=== PATIENT | female | born 1940 | race Caucasian/White ===

== ENCOUNTER 2019-04-06 11:40 | Inpatient (IN) | payer MEDICARE, OTHER ==
[~2019-04-06] VITALS: Ht 167.6 cm; Wt 83.0 kg
[~2019-04-06 11:40] MED LIST: ACET1TAB40 PO; ALBU18HF INHALATION; AMIO200T4 PO; AMLO5TAB4 PO; ASPI81TA52 PO; ASPIRIN; ATEN-51 PO; BACL10TA PO; BUPR150T6 PO; CEPH500C PO; CLOP75TA27 PO; CYCL1DRO BOTH EYES; DIGO250T16 PO; DIOVAN; DULO30CA48 PO; ENALIPRIL; ESOM40CA PO; EZET10TA19 PO; FURO-110 PO; GABA100C14 PO; HYDR-3671 PO; ISOSORBIDE; LIDO700A29 TP; MELO15TA30 PO; MEMA10TA PO; METOPROLOL; MIRA25TA PO; MONT10TA24 PO; OMEP40CA38 PO; PRAM1TAB PO; RSV10T PO; TEMA15CA6 PO; TRAM50TA PO; VALS160T20 PO
[2019-04-06] MEDS ORDERED: CEFEPIME 2GM/50 ML (PMX) 50 ML IVPB STA (11:55)
[2019-04-06] MEDS ORDERED: KETOROLAC 15 MG INJ IV STA (11:55)
[2019-04-06] MEDS ORDERED: ACETAMINOPHEN 325 MG TAB PO STA (11:55)
[2019-04-06] MEDS ORDERED: SODIUM CHLORIDE 0.9% 1L BAG IV* STA (11:55)
[2019-04-06] MEDS ORDERED: VANCOMYCIN 1 GM (PMX) 250 ML IVPB ONE (12:00)
[2019-04-06] MEDS ORDERED: DILTIAZEM-D5W 125MG/125ML DRIP 125 ML IV STA (12:57)
[2019-04-06] MEDS ORDERED: MAGNESIUM SULFATE 2 GM/50 ML 50 ML IVPB STA (12:57)
[2019-04-06] MEDS ORDERED: DIPHENHYDRAMINE 50 MG INJ IV ONE (13:00)
[2019-04-06] MEDS ORDERED: DILTIAZEM 25 MG INJ IV ONE (13:00)
[2019-04-06] MEDS ORDERED: DEXAMETHASONE 10 MG/ML 1 ML INJ IV ONE (13:00)
[2019-04-06] MEDS ORDERED: ACETAMINOPHEN 325 MG TAB PO PRN ×2 (14:30→17:00)
[2019-04-06] MEDS ORDERED: ONDANSETRON 4 MG INJ IV PRN ×2 (14:30→17:00)
[2019-04-06 16:46] VITALS: BP 114/60; PULSE 91; RESP 16
[2019-04-06 16:47] VITALS: Ht 167.6 cm; Wt 83.0 kg
[2019-04-06] MEDS ORDERED: morphine 2 MG INJ IV PRN (17:00)
[2019-04-06] MEDS ORDERED: traMADol 50 MG TAB PO PRN (17:00)
[2019-04-06] MEDS ORDERED: VANCOMYCIN IV PER PHARMACY XX SCH (17:00)
[2019-04-06] MEDS ORDERED: hydrALAzine 20 MG INJ IV PRN (17:00)
[2019-04-06] MEDS ORDERED: LORAZEPAM 2 MG INJ IV PRN (17:00)
[2019-04-06] MEDS ORDERED: MAGNESIUM HYDROXIDE 30ML CUP PO PRN (17:00)
[2019-04-06] MEDS ORDERED: NACL 0.9% 3 ML SYG IV SCH (17:00)
[2019-04-06] MEDS ORDERED: NITROGLYCERIN (SL) 0.4 MG TAB SL PRN (17:00)
[2019-04-06] MEDS ORDERED: HYDROCODONE/APAP (5/325) TAB PO PRN (17:00)
[2019-04-06] MEDS ORDERED: DOCUSATE SODIUM 100 MG CAP PO PRN (17:00)
[2019-04-06] MEDS ORDERED: ALBUTEROL/IPRATROPIUM (NEB) 3 ML AMP HHN PRN (17:00)
[2019-04-06] MEDS ORDERED: NON-FORMULARY/PATIENT OWN MED (Temazepam* (Restoril*) 15 MG) PO PRN (17:00)
[2019-04-06] MEDS ORDERED: DILTIAZEM-D5W 125MG/125ML DRIP 125 ML IV SCH (17:00)
[2019-04-06] MEDS: SOD CHLORIDE 0.45% 1,000 ML IV SCH (17:57)
[2019-04-06] MEDS ORDERED: ZOLPIDEM 5 MG TAB PO PRN (18:30)
[2019-04-06] MEDS: PIPER-TAZO 3.375 GM IV (PMX) 100 ML IVPB SCH (18:31)
[2019-04-06 20:00] VITALS: BP 111/56; PULSE 88; RESP 17
[2019-04-06] MEDS: MEMANTINE 10 MG TAB PO SCH (21:00)
[2019-04-06] MEDS ORDERED: PRAMIPEXOLE 1 MG TAB PO SCH (21:00)
[2019-04-06] MEDS ORDERED: MONTELUKAST 10 MG TAB PO SCH (21:00)
[2019-04-06] MEDS ORDERED: EZETIMIBE 10 MG TAB PO SCH (21:00)
[2019-04-06] MEDS: ATENOLOL 25 MG TAB PO SCH (21:00)
[2019-04-06] MEDS ORDERED: NON-FORMULARY/PATIENT OWN MED (Rosuvastatin Calcium* (Crestor*) 10 MG) PO SCH (21:00)
[2019-04-06] MEDS: GABAPENTIN 100 MG CAP PO SCH (21:00)
[2019-04-06] MEDS ORDERED: ATORVASTATIN 40 MG TAB PO SCH (21:00)
[2019-04-06] MEDS: CYCLOSPORINE 0.05% OPH DROPERETTE BOTH EYES SCH (21:19)
[2019-04-06] MEDS: APIXABAN 5 MG TABLET PO SCH (21:20)
[2019-04-06] MEDS ORDERED: SOD CHLORIDE 0.9% 250 ML IV ONE (23:00)
[2019-04-07 00:06] VITALS: BP 107/60; PULSE 90; RESP 18
[2019-04-07] MEDS: PIPER-TAZO 3.375 GM IV (PMX) 100 ML IVPB SCH ×2 (00:11→06:02)
[2019-04-07 04:48] VITALS: BP 115/70; PULSE 76; RESP 19
[2019-04-07] MEDS ORDERED: PANTOPRAZOLE (EC) 40 MG TAB PO SCH (06:00)
[2019-04-07] MEDS: SOD CHLORIDE 0.45% 1,000 ML IV SCH (06:00)
[2019-04-07 07:14] VITALS: BP 133/70; PULSE 80; RESP 19
[2019-04-07] MEDS: GABAPENTIN 100 MG CAP PO SCH (08:55)
[2019-04-07] MEDS: MEMANTINE 10 MG TAB PO SCH (08:55)
[2019-04-07] MEDS: ATENOLOL 25 MG TAB PO SCH (08:55)
[2019-04-07] MEDS: CYCLOSPORINE 0.05% OPH DROPERETTE BOTH EYES SCH (08:56)
[2019-04-07] MEDS: APIXABAN 5 MG TABLET PO SCH (08:58)
[2019-04-07] MEDS ORDERED: CLOPIDOGREL 75 MG TAB PO SCH (09:00)
[2019-04-07] MEDS ORDERED: DIGOXIN 0.25 MG TAB PO SCH (09:00)
[2019-04-07] MEDS ORDERED: NON-FORMULARY/PATIENT OWN MED (Mirabegron (Mybetriq) 25 MG) PO SCH (09:00)
[2019-04-07] MEDS ORDERED: BACLOFEN 10 MG TAB PO SCH (09:00)
[2019-04-07] MEDS ORDERED: ASPIRIN (EC) 81 MG TAB PO SCH (09:00)
[2019-04-07] MEDS ORDERED: NON-FORMULARY/PATIENT OWN MED (Omeprazole* 40 MG) PO SCH (09:00)
[2019-04-07] MEDS ORDERED: DULOXETINE 30 MG CAP DR PO SCH (09:00)
[2019-04-07] MEDS ORDERED: MELOXICAM 15 MG TAB PO SCH (09:00)
[2019-04-07] MEDS ORDERED: BUPROPION (XL) 150 MG TAB PO SCH (09:00)
[2019-04-07] MEDS ORDERED: FUROSEMIDE 20 MG TAB PO SCH (09:00)
[2019-04-07] MEDS ORDERED: [UNRECOGNIZED DRUG - REMARK] XX SCH (11:00)
[2019-04-07 11:03] VITALS: BP 113/63; PULSE 60; RESP 19
[2019-04-07] MEDS ORDERED: VANCOMYCIN 1.25 GM/NS 250 ML 250 ML IVPB SCH (13:00)
== END 2019-04-07 12:06 | disposition home or self-care (01) | DRG 871 ==
LOC: E/R 11:40 → TEL 14:30
PROVIDERS: ADMIT Internal Medicine; ATTEND Internal Medicine
DX: A41.9 Sepsis, unspecified organism (principal); G93.41 Metabolic encephalopathy; L03.113 Cellulitis of right upper limb; I48.0 Paroxysmal atrial fibrillation; E66.01 Morbid (severe) obesity due to excess calories; R50.9 Fever, unspecified; M79.89 Other specified soft tissue disorders; I10 Essential (primary) hypertension; E78.5 Hyperlipidemia, unspecified; F32.9 Major depressive disorder, single episode, unspecified; Z68.29 Body mass index [BMI] 29.0-29.9, adult; Z91.14 Patient's other noncompliance with medication regimen; Z79.82 Long term (current) use of aspirin; Z79.02 Long term (current) use of antithrombotics/antiplatelets; Z90.11 Acquired absence of right breast and nipple; Z85.3 Personal history of malignant neoplasm of breast
CPT/HCPCS: 71045; 80048; 80053; 80061; 80162; 81001; 82550; 82553; 83036; 83605; 83735; 83880; 84100; 84439; 84443; 84484; 85025; 85610; 85730; 87086; 92610; 93005; 93306; 93971; 96365; 96367; 96368; 96375; 97161; 97167; J0692; J1100; J1200; J1885; J2543; J3370; J3475; J7030; J7040